=== PATIENT | female | born 1995 | race Caucasian/White ===

== ENCOUNTER 2017-02-05 21:22 | Emergency (ER) | payer OTHER ==
[2017-02-05 21:38] VITALS: BMI 21.0
--- NOTE | 2017-02-05 21:45 | PDOC ---
Rapid Medical Evaluation Chief Complaint: Nausea Time Seen by Provider: 02/05/17 21:37 Medical Evaluation: Allergies Allergy/AdvReac Type Severity Reaction Status Date / Time No Known Allergies Allergy Verified 02/05/17 21:36 Vital Signs Temp Pulse Resp BP Pulse Ox 99.2 F 119 H 18 103/49 97 02/05/17 21:36 02/05/17 21:36 02/05/17 21:36 02/05/17 21:36 02/05/17 21:36 02/05/17 21:42 RME Note: I have performed a brief, in-person evaluation of this patient . This patient presents with CC: 1 day of fever, body aches, diarrhea; no appetite Pertinent PE findings are: HR= 119; not pale; lungs clear I have ordered: UA, U Preg., and influenza rapid The patient will proceed to ED for further evaluation.
[2017-02-05 21:55] LABS: URINE APPEARANCE CLEAR; URINE BILIRUBIN NEGATIVE (NEGATIVE); URINE BLOOD NEGATIVE (NEGATIVE); URINE COLOR COLORLESS; URINE GLUCOSE (UA) NEGATIVE (NEGATIVE); URINE KETONE NEGATIVE (NEGATIVE); URINE LEUK ESTERASE NEGATIVE (NEGATIVE); URINE NITRITE NEGATIVE (NEGATIVE); URINE PROTEIN NEGATIVE (NEGATIVE); URINE UROBILINOGEN NEGATIVE E.U./dl (0.2-1.0)
[2017-02-05] MEDS ORDERED: ONDANSETRON 4 MG/2 ML VIAL IVPB ONE (22:45)
[2017-02-05] MEDS ORDERED: SODIUM CHLORIDE 1,000 ML IV STA (22:45)
--- NOTE | 2017-02-06 00:45 | PDOC ---
History of Present Illness - History of Present Illness Initial Comments: 02/06/17 01:18 The patient is a 21 year old female, with no significant past medical history, who presents to the emergency department with nausea, fever, chills, diarrhea, headache, and low back pain since yesterday. The patient states she has been unable to eat solid food since yesterday because of her nausea. She states she has only been drinking water because she is afraid she will vomit otherwise, but she denies any episodes of vomiting. The patient states she has been experiencing headaches, neck pain and low back pain. She also reports at least 5 episodes of diarrhea since yesterday which were watery and brown. She denies chest pain, shortness of breath, and dizziness. She denies vomit and constipation. She denies dysuria, frequency, urgency and hematuria. LMP: 01/21/17 Allergies: NKDA Social history: denies toxic habits PCP - Dr. Dave Abreu <Sara Matamoros - Last Filed: 02/06/17 01:17> <Maria Ines Chilel - Last Filed: 02/06/17 03:01> - General Chief Complaint: Nausea Stated Complaint: FEVER/HEADACHE/BACK PAIN/ABD PAIN Time Seen by Provider: 02/05/17 21:37 Past History <Sara Matamoros - Last Filed: 02/06/17 01:17> - Psycho/Social/Smoking Cessation Hx Anxiety: No Suicidal Ideation: No Smoking History: Never smoked Have you smoked in the past 12 months: No Hx Alcohol Use: No Drug/Substance Use Hx: No Substance Use Type: None <Maria Ines Chilel - Last Filed: 02/06/17 03:01> - Past Medical History Allergies/Adverse Reactions: Allergies Allergy/AdvReac Type Severity Reaction Status Date / Time No Known Allergies Allergy Verified 02/05/17 21:36 Home Medications: Ambulatory Orders NK [No Known Home Medication] 02/06/17 Review of Systems - Review of Systems Able to Perform ROS?: Yes Comments:: 02/06/17 01:18 CONSTITUTIONAL: (+) fever, chills,Absent: diaphoresis, generalized weakness, malaise, loss of appetite HEENT: Absent: rhinorrhea, nasal congestion, throat pain, throat swelling, difficulty swallowing, mouth swelling, ear pain, eye pain, visual Changes CARDIOVASCULAR: Absent: chest pain, syncope, palpitations, irregular heart rate, lightheadedness , peripheral edema RESPIRATORY: Absent: cough, shortness of breath, dyspnea with exertion, orthopnea, wheezing, stridor, hemoptysis GASTROINTESTINAL: (+) abdominal pain, nausea, diarrhea, Absent: abdominal distension, vomiting, constipation, melena, hematochezia GENITOURINARY: Absent: dysuria, frequency, urgency, hesitancy, hematuria, flank pain, genital pain MUSCULOSKELETAL: Absent: myalgia, arthralgia, joint swelling SKIN: Absent: rash, itching, pallor HEMATOLOGIC/IMMUNOLOGIC: Absent: easy bleeding, easy bruising, lymphadenopathy, frequent infections ENDOCRINE: Absent: unexplained weight gain, unexplained weight loss, heat intolerance, cold intolerance NEUROLOGIC: Absent: headache, focal weakness or paresthesias, dizziness, unsteady gait, seizure, mental status changes, bladder or bowel incontinence PSYCHIATRIC: Absent: anxiety, depression, suicidal or homicidal ideation, hallucinations. <Sara Matamoros - Last Filed: 02/06/17 01:17> *Physical Exam - Vital Signs Last Vital Signs Temp Pulse Resp BP Pulse Ox 99.2 F 119 H 18 103/49 97 02/05/17 21:36 02/05/17 21:36 02/05/17 21:36 02/05/17 21:36 02/05/17 21:36 - Physical Exam Comments: 02/06/17 01:20 GENERAL: Well developed, well nourished. Awake and alert. No acute distress. HEENT: Normocephalic, atraumatic. PERRLA, EOMI. No conjunctival pallor. Sclera are non- icteric. Moist mucous membranes. Oropharynx is clear. NECK: Supple. Full ROM. No JVD. Carotid pulses 2+ and symmetric, without bruits. No thyromegaly. No lymphadenopathy. CARDIOVASCULAR: Regular rate and rhythm. No murmurs, rubs, or gallops. Distal pulses are 2+ and symmetric. PULMONARY: No evidence of respiratory distress. Lungs clear to auscultation bilaterally. No wheezing, rales or rhonchi. ABDOMINAL: (+) diffuse mild discomfort. Soft. Non-distended. No rebound or guarding. No organomegaly. Normoactive bowel sounds. MUSCULOSKELETAL Normal range of motion at all joints. No bony deformities or tenderness. No CVA tenderness. EXTREMITIES: No cyanosis. No clubbing. No edema. No calf tenderness. SKIN: Warm and dry. Normal capillary refill. No rashes. No jaundice. NEUROLOGICAL: Alert, awake, appropriate. Cranial nerves 2-12 intact. Normoreflexic in the upper and lower extremities. Normal speech. Toes are down-going bilaterally. Gait is normal without ataxia. PSYCHIATRIC: Cooperative. Good eye contact. Appropriate mood and affect. <Sara Matamoros - Last Filed: 02/06/17 01:17> - Vital Signs Last Vital Signs Temp Pulse Resp BP Pulse Ox 99.2 F 119 H 18 103/49 97 02/05/17 21:36 02/05/17 21:36 02/05/17 21:36 02/05/17 21:36 02/05/17 21:36 <Maria Ines Chilel - Last Filed: 02/06/17 03:01> ED Treatment Course - ADDITIONAL ORDERS Additional order review: Laboratory Results 02/05/17 21:20 Urine Color Colorless Urine Appearance Clear Urine pH 6.0 Ur Specific [place] 1.002 Urine Protein Negative Urine Glucose (UA) Negative Urine Ketones Negative Urine Blood Negative Urine Nitrite Negative Urine Bilirubin Negative Urine Urobilinogen Negative Ur Leukocyte Esterase Negative Urine HCG, Qual Negative 02/05/17 21:40 Influenza Types A,B Antigen (NATHALIE) - Final Nasopharyngeal Swab - Final - Medications Given in the ED: ED Medications Discontinued Medications Generic Name Dose Route Start Last Admin Trade Name Freq PRN Reason Stop Dose Admin Sodium Chloride 1,000 mls @ 1,000 mls/hr 02/05/17 22:45 02/06/17 01:02 Normal Saline - IV 02/05/17 23:44 1,000 mls/hr ASDIR STA Administration Ondansetron HCl 4 mg 02/05/17 22:45 02/06/17 01:02 Zofran Injection IVPB 02/05/17 22:46 4 mg ONCE ONE Administration <Sara Matamoros - Last Filed: 02/06/17 01:17> - LABORATORY CBC & Chemistry Diagram: 02/06/17 01:30 02/06/17 01:30 - ADDITIONAL ORDERS Additional order review: Laboratory Results 02/05/17 21:20 Urine Color Colorless Urine Appearance Clear Urine pH 6.0 Ur Specific [place] 1.002 Urine Protein Negative Urine Glucose (UA) Negative Urine Ketones Negative Urine Blood Negative Urine Nitrite Negative Urine Bilirubin Negative Urine Urobilinogen Negative Ur Leukocyte Esterase Negative Urine HCG, Qual Negative 02/05/17 21:40 Influenza Types A,B Antigen (NATHALIE) - Final Nasopharyngeal Swab - Final <Maria Ines Chilel - Last Filed: 02/06/17 03:01> *DC/Admit/Observation/Transfer - Attestations Scribe Attestion: 02/06/17 01:20 Documentation prepared by Sara Matamoros, acting as medical art therapist for Maria Ines Chilel MD <Sara Matamoros - Last Filed: 02/06/17 01:17> <Maria Ines Chilel - Last Filed: 02/06/17 03:01> Diagnosis at time of Disposition: Body aches Diarrhea Qualifiers: Diarrhea type: unspecified type Qualified Code(s): R19.7 - Diarrhea, unspecified Fever Qualifiers: Fever type: unspecified Qualified Code(s): R50.9 - Fever, unspecified Headache Qualifiers: Headache type: unspecified Headache chronicity pattern: unspecified pattern Intractability: not intractable Qualified Code(s): R51 - Headache - Discharge Dispostion Disposition: HOME Condition at time of disposition: Stable - Referrals Referrals: Dave Abreu MD [Primary Care Provider] - - Patient Instructions Printed Discharge Instructions: DI for Diarrhea and Traveler's Diarrhea -- Adult, DI for Fever (Symptom) -- Adult, DI for Viral Syndrome Additional Instructions: PLEASE TAKE TYLENOL OR MOTRIN FOR FEVER AND PAIN REST TRY TO STAY HYDRATED AND DRINK PLENTY OF FLUID RETURN TO THE EMERGENCY DEPARTMENT IF YOU HAVE ANY WORSENING SYMPTOMS
[2017-02-06] MEDS ORDERED: ONDANSETRON 4 MG/2 ML VIAL ONE (00:46)
[2017-02-06 02:09] LABS: BASOPHIL 0.2 % (0-2.0); EOSINOPHIL 0.1 % (0-4.5); MCH 27.1 pg (25.7-33.7); MCHC 33.6 g/dl (32.0-36.0); MEAN CELL VOLUME 80.7 fl (80-96); MEAN PLT VOLUME 7.3 fl (7.5-11.1); NEUTROPHILS 86.1 % (42.8-82.8); PLATELET COUNT 172 K/MM3 (134-434); WHITE BLOOD COUNT 10.7 K/mm3 (4.0-10.0)
[2017-02-06] MEDS ORDERED: KETOROLAC TROMETHAMINE 30 MG/1 ML VIAL IVPUSH ONE (02:26)
[2017-02-06 02:35] LABS: ALBUMIN 3.8 g/dl (3.4-5.0); ALK PHOS 79 U/L (45-117); ANION GAP 13 (8-16); BILIRUBIN,TOTAL 0.4 mg/dL (0.2-1.0); CALCIUM 9.1 mg/dL (8.5-10.1); CO2 25 mmol/L (21-32); CREATININE 0.7 mg/dL (0.55-1.02); GLUCOSE,RANDOM 89 mg/dL (74-106); SGPT/ALT 49 U/L (12-78); TOT PROT 7.4 g/dl (6.4-8.2)
[2017-02-06 02:49] LABS: SGOT/AST 133 U/L (15-37)
[2017-02-06 02:58] VITALS: BP 100/59; PULSE 103; TEMP 99.4
[2017-02-06] MEDS ORDERED: KETOROLAC TROMETHAMINE 30 MG/1 ML VIAL ONE (03:09)
== END 2017-02-06 03:16 | disposition home or self-care (01) ==
LOC: JER 21:22
PROC: 3E0333Z Introduction of Anti-inflammatory into Peripheral Vein, Percutaneous Approach (ICD-10-PCS; principal; 2017-02-05)
PROC: 3E033GC Introduction of Other Therapeutic Substance into Peripheral Vein, Percutaneous Approach (ICD-10-PCS; 2017-02-05)
DX: B34.9 Viral infection, unspecified (principal)
CPT/HCPCS: 36415; 80053; 81003; 83690; 84703; 85025; 87804; 96374; 96375; 99282-25